=== PATIENT | female | born 1985 | race Caucasian/White ===

== ENCOUNTER 2018-03-08 09:36 | Emergency (ER) | payer OTHER ==
[2018-03-08] MEDS: KETOROLAC 60 MG INJ IM (10:27)
[2018-03-08 10:49] LABS: ADD UMIC YES; UR ASCORBIC ACID NEGATIVE (NEGATIVE); UR BACTERIA FEW /HPF (NONE SEEN); UR BILIRUBIN (Dip) NEGATIVE (NEGATIVE); UR BLOOD (Dip) 1+ mg/dL (NEGATIVE); UR CLARITY CLEAR (CLEAR); UR COLOR STRAW (YELLOW); UR GLUCOSE (Dip) NEGATIVE (NEGATIVE); UR KETONES (Dip) NEGATIVE (NEGATIVE); UR LEUKOCYTE ESTERASE (Dip) NEGATIVE Leu/ul (NEGATIVE); UR NITRITE (Dip) NEGATIVE (NEGATIVE); UR RBC 1 /HPF (0-5); UR SPECIFIC GRAVITY (Dip) 1.003 (1.003-1.030); UR SQUAMOUS EPITHELIAL CELL FEW /HPF (FEW); UR TOTAL PROTEIN (Dip) NEGATIVE (NEGATIVE); UR UROBILINOGEN (Dip) NEGATIVE (NEGATIVE); UR WBC 1 /HPF (0-5)
== END 2018-03-08 13:23 | disposition home or self-care (01) ==
LOC: FTE 09:36
DX: S39.92XA Unspecified injury of lower back, initial encounter (principal); X58.XXXA Exposure to other specified factors, initial encounter; Y92.9 Unspecified place or not applicable
CPT/HCPCS: 72100; 76705; 76830; 76856; 81001; 81025; 96372; 99285-25

== ENCOUNTER 2018-04-23 12:34 | Emergency (ER) | payer OTHER ==
[2018-04-23] MEDS: DEXAMETHASONE 10 MG/ML 1 ML INJ IM (14:15)
[2018-04-23] MEDS: AMOXICILLIN 500 MG CAP PO (14:15)
[2018-04-23] MEDS: IBUPROFEN 600 MG TAB PO (14:15)
== END 2018-04-23 14:37 | disposition home or self-care (01) ==
LOC: FTE 12:34
DX: J02.9 Acute pharyngitis, unspecified (principal)
CPT/HCPCS: 96372; 99284-25